=== PATIENT | female | born 1970 | race Caucasian/White ===

== ENCOUNTER → 2016-08-04 | Outpatient (REF) | LOC: WSOH 10:30 | DX: Z02.89 Encounter for other administrative examinations (principal) ==

== ENCOUNTER 2017-08-09 13:00 | Outpatient (RCR) | payer OTHER | END 2017-09-01 10:39 | LOC: WSOH 13:00 | DX: S30.0XXA Contusion of lower back and pelvis, initial encounter (principal); W00.0XXA Fall on same level due to ice and snow, initial encounter; Y99.0 Civilian activity done for income or pay; Z88.0 Allergy status to penicillin ==

== ENCOUNTER → 2018-02-08 | Outpatient (CLI) | payer BC | LOC: COL.RAD 10:43 | DX: R51 Headache (principal); R11.2 Nausea with vomiting, unspecified ==

== ENCOUNTER 2018-06-12 16:24 | Emergency (ER) | payer OTHER ==
[~2018-06-12] VITALS: Ht 190.5 cm; Wt 89.1 kg
[2018-06-12 16:31] VITALS: TEMP 98.2
[2018-06-12] MEDS ORDERED: PRILOSEC 20MG20 MG PO (17:28)
[2018-06-12] MEDS ORDERED: CRESTOR5 MG PO (17:28)
[2018-06-12] MEDS ORDERED: NORCO 325 MG-51 TAB PO (18:35)
[2018-06-12 19:37] VITALS: BP 123/86; PULSE 81
== END 2018-06-12 18:50 | disposition home or self-care (01) ==
LOC: COL.ER 16:24
DX: S42.101A Fracture of unspecified part of scapula, right shoulder, initial encounter for closed fracture (principal); I10 Essential (primary) hypertension; K21.9 Gastro-esophageal reflux disease without esophagitis; W00.0XXA Fall on same level due to ice and snow, initial encounter